=== PATIENT | male | born 1990 | race Caucasian/White ===

== ENCOUNTER 2018-07-04 12:48 | Emergency (ER) | payer BC, OTHER ==
[~2018-07-04] VITALS: Ht 167.6 cm; Wt 101.2 kg
[2018-07-04] MEDS ORDERED: SULF1TAB35 PO (13:04)
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
[2018-07-04] MEDS ORDERED: IBUPROFEN TABLET 200 MG TAB PO ONE (13:15)
[2018-07-04 13:27] VITALS: BP 144/96
== END 2018-07-04 13:29 | disposition home or self-care (01) ==
LOC: EDUNIT# 12:48 → ER 12:50
DX: T63.301A Toxic effect of unspecified spider venom, accidental (unintentional), initial encounter (principal); F17.210 Nicotine dependence, cigarettes, uncomplicated
CPT/HCPCS: 10060

== ENCOUNTER 2018-07-05 12:47 | Emergency (ER) | payer BC ==
[~2018-07-05] VITALS: Ht 167.6 cm; Wt 99.8 kg
[~2018-07-05 12:47] MED LIST: SULF1TAB35 PO
[2018-07-05] MEDS ORDERED: KETOROLAC 30 MG/ML VIAL IM ONE (13:15)
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
[2018-07-05 13:29] VITALS: BP 147/79
== END 2018-07-05 13:29 | disposition home or self-care (01) ==
LOC: EDUNIT# 12:47 → ER 12:48
DX: T63.301A Toxic effect of unspecified spider venom, accidental (unintentional), initial encounter (principal); M25.411 Effusion, right shoulder; F17.210 Nicotine dependence, cigarettes, uncomplicated
CPT/HCPCS: 96372; 99284

== ENCOUNTER 2022-05-18 22:40 | Emergency (ER) | payer SELFPAY ==
[~2022-05-18] VITALS: Ht 167.6 cm; Wt 99.8 kg
[~2022-05-18 22:40] MED LIST changes: -SULF1TAB35 PO; +SULF1TAB38 PO
[2022-05-18] MEDS: NITROGLYCERIN 0.4 MG SL TABS BTL 25'S SL PRN ×3 (22:53→23:03)
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
[2022-05-18 22:55] LABS: BASOPHILS % (AUTO) 0 % (0-10); EOSINOPHILS # (AUTO) 0.2 10^3/uL (0.0-0.3); EOSINOPHILS % (AUTO) 2 % (0-10); HEMATOCRIT 47 % (40-54); HEMOGLOBIN 16.1 g/dL (13.3-17.7); LYMPHOCYTES % (AUTO) 37 % (12-44); MEAN CORPUSCULAR HEMOGLOBIN 30 pg (25-34); MEAN CORPUSCULAR HGB CONC 34 g/dL (32-36); MEAN CORPUSCULAR VOLUME 87 fL (80-99); MEAN PLATELET VOLUME 10.4 fL (9.0-12.2); MONOCYTES % (AUTO) 13 % (0-12); NEUTROPHILS # (AUTO) 3.8 10^3/uL (1.8-7.8); NEUTROPHILS % (AUTO) 47 % (42-75); PLATELET COUNT 240 10^3/uL (130-400); WHITE BLOOD COUNT 8.1 10^3/uL (4.3-11.0)
[2022-05-18] MEDS ORDERED: ASPIRIN 81 MG CHEW (CHILDREN'S ASA) PO ONE (23:00)
[2022-05-18 23:06] LABS: ALBUMIN 4.7 GM/DL (3.2-4.5)
[2022-05-18 23:07] LABS: CHLORIDE 104 MMOL/L (98-107); SODIUM 140 MMOL/L (135-145)
[2022-05-18 23:08] LABS: CALCIUM 9.4 MG/DL (8.5-10.1); INR 0.9 (0.8-1.4); PROTHROMBIN TIME PATIENT 12.9 SEC (12.2-14.7)
[2022-05-18 23:09] LABS: GLUCOSE 94 MG/DL (70-105); TOTAL PROTEIN 7.7 GM/DL (6.4-8.2)
[2022-05-18 23:10] LABS: CARBON DIOXIDE 21 MMOL/L (21-32)
[2022-05-18 23:11] LABS: BILIRUBIN,TOTAL 0.5 MG/DL (0.1-1.0)
[2022-05-18 23:12] LABS: ALKALINE PHOSPHATASE 64 U/L (40-136)
[2022-05-18 23:13] LABS: CREATININE SERUM 1.15 MG/DL (0.60-1.30); GFR ESTIMATED 87
[2022-05-18 23:14] LABS: BUN/CREATININE RATIO 16
[2022-05-18 23:15] LABS: MAGNESIUM 2.3 MG/DL (1.6-2.4)
[2022-05-18 23:16] LABS: ALANINE AMINOTRANSFERASE 53 U/L (0-55)
[2022-05-18 23:17] LABS: LIPASE 33 U/L (8-78)
[2022-05-18] MEDS ORDERED: FAMOTIDINE 20 MG (PEPCID) TABLET PO STA (23:17)
[2022-05-18] MEDS ORDERED: ANTACID SUSP 30 ML UDC (MYLANTA) PO ONE (23:30)
[2022-05-18] MEDS ORDERED: LIDOCAINE 2% VISCOUS 15 ML UDC PO ONE (23:30)
[2022-05-19 02:09] LABS: TRIGLYCERIDES 93 MG/DL (<150); VLDL CHOLESTEROL 19 MG/DL (5-40)
[2022-05-19 02:14] LABS: CHOLESTEROL 134 MG/DL (< 200); HDL CHOLESTEROL 36 MG/DL (40-60)
[2022-05-19 02:28] VITALS: BP 99/65
--- NOTE | 2022-05-19 07:06 | Diagnostic Imaging Report ---
CHEST 1 VIEW, AP/PA ONLY Indication: Chest pain. Comparison: None available. Findings: No consolidation or mass. Small dense nodules in the right midlung are compatible with old granulomatous infection. Please note that the posterior lower lobes are poorly evaluated by portable radiography. No pleural effusion or pneumothorax. Normal cardiomediastinal silhouette. Impression: 1. No acute cardiopulmonary process by portable radiography. Dictated by: Dictated on workstation # [id number]
== END 2022-05-19 02:30 | disposition home or self-care (01) ==
LOC: EDUNIT# 22:40 → ER 22:42
DX: R07.2 Precordial pain (principal); F17.210 Nicotine dependence, cigarettes, uncomplicated
CPT/HCPCS: 36415; 71045; 80053; 80061; 83690; 83735; 83874; 83880; 84484; 85025; 85379; 85610; 85730; 93005